=== PATIENT | male | born 1940 | race Caucasian/White ===

== ENCOUNTER → 2018-06-28 | Day surgery (SDC) | payer MEDICARE ==
[2018-06-27 18:24] LABS: BASOPHILS # (AUTO) 0.1 (0.0-0.1); BASOPHILS % 0.8 % (0.0-1.0); EOSINOPHILS # (AUTO) 0.3 (0.0-0.4); EOSINOPHILS % 4.4 % (0.0-6.0); HEMATOCRIT 49.5 % (38.2-49.6); HEMOGLOBIN 17.2 g/dL (14.0-18.0); LYMPHOCYTES # (AUTO) 0.9 (1.0-3.2); LYMPHOCYTES % 15.4 % (18.0-39.1); MEAN CORPUSCULAR HEMOGLOBIN 34.4 pg (28-32); MEAN CORPUSCULAR HGB CONC 34.7 g/dL (31-35); MONOCYTES # (AUTO) 0.5 (0.2-0.8); MONOCYTES % 8.2 % (4.4-11.3); NEUTROPHILS # (AUTO) 4.3 (2.1-6.9); NEUTROPHILS % 70.7 % (38.7-80.0); PLATELET COUNT 184 x10e3/uL (140-360); RED CELL DISTRIBUTION WIDTH 12.8 % (11.7-14.4)
[2018-06-27 18:43] LABS: ANION GAP 17.9 mmol/L (8-16); BLOOD UREA NITROGEN 12 mg/dL (7-26); BUN/CREATININE RATIO 12 (6-25); CALCIUM 9.6 mg/dL (8.4-10.2); CARBON DIOXIDE 22 mmol/L (22-29); CHLORIDE 106 mmol/L (98-107); EST GLOMERULAR FILTRATION RATE > 60 ML/MIN (60-); GLUCOSE 96 mg/dL (74-118); POTASSIUM 3.9 mmol/L (3.5-5.1); SODIUM 142 mmol/L (136-145)
--- NOTE | 2018-06-27 19:01 | Diagnostic Imaging Report ---
EXAMINATION: CHEST 2 VIEWS INDICATION: \S\PRE OP \S\[id number] \S\1740 \S\ANESTH PROT COMPARISON: None FINDINGS: PA and lateral views TUBES and LINES: Left chest wall pacer with lead tips overlying the right atrium and right ventricle. LUNGS: Lungs are well inflated. Lungs are clear. There is no evidence of pneumonia or pulmonary edema. PLEURA: No pleural effusion or pneumothorax. HEART AND MEDIASTINUM: The cardiomediastinal silhouette is unremarkable. BONES AND SOFT TISSUES: No acute osseous lesion. Soft tissues are unremarkable. UPPER ABDOMEN: No free air under the diaphragm. IMPRESSION: No acute thoracic abnormality. Signed by: DR. Ken Norman MD on 06/27/2018 6:57 PM
[~2018-06-28] MED LIST: AMBIEN PO; ASPIR 8181 MG PO; BUPIVACAINE HCL 0.5% INJ 30 ML VIAL INJ ONE; CEFAZOLIN SOD 1 GM VIAL ONE; CO Q-10 PO; DEXAMETHASONE SOD PHOS INJ 4 MG/ML VIAL ONE; FENTANYL CITRATE/PF 100MCG/2 ML INJ ONE; LABETALOL HCL 20 ML ONE; LIDOCAINE HCL 2% LOCAL 20 ML VIAL ONE; LIDOCAINE HCL 2% LOCAL INJ 5 ML SDV VIAL INJ ONE; LOSARTAN; LOSARTAN-HCTZ PO; MIDAZOLAM HCL 2 MG/2 ML VIAL ONE; ONDANSETRON HCL INJ 2 MG/ML VIAL ONE; PLAVIX75 MG PO; PROPOFOL IV EMULSION 10 MG/ML 20 ML VIAL ONE; SEVOFLURANE INHAL SOLN 250 ML PEN BTL ONE; VITAMIN B-12 PO
[2018-06-28 09:30] VITALS: BP 161/92
--- NOTE | 2018-06-28 11:08 | Operative Report ---
DATE OF PROCEDURE: June 28, 2018 FITNESS TECHNICIAN: Osman Spivey PA-C The patient was brought to the operating room for induction of anesthesia. Throughout this case, my PA's assistance was necessary for retraction of soft tissue and positioning of the extremity. This allows for efficient and technically successful execution of the operation and is considered medically necessary. PREOPERATIVE DIAGNOSIS: Left 4th trigger finger. POSTOPERATIVE DIAGNOSIS: Left 4th trigger finger. PROCEDURE: Left 4th trigger finger release. INDICATIONS: The patient is a 77-year-old gentleman who has severe left trigger finger. He has had this in other digits and would like to proceed with surgical release. The risks and benefits have been explained. He states he understands and wishes to proceed. 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 He would like a corticosteroid injection while he is under anesthesia. DESCRIPTION OF PROCEDURE: The patient was brought to the operating room and placed under general anesthetic. His left upper extremity was prepped and draped in a sterile manner. A preoperative time out was performed. The extremity was exsanguinated, and a proximal tourniquet was inflated to 250 mmHg. A transverse incision in line with the distal palmar crease was made. The A1 david was exposed and released. Fluid within the tendon sheath was blood-tinged. The tendon was retracted from the wound. The PIP joint had full fluid flexion. The DIP had limited motion secondary to arthritis. The wound was irrigated and closed with interrupted nylon stitches. Two mL of 2% lidocaine without epinephrine were injected around the incision. This was then mixed with a vial of Solu-Medrol. The carpus was injected. A sterile bandage was applied. The patient was extubated and transported to the recovery room in stable condition. There was no blood loss, and all needle and sponge counts were correct. Job#: [id number]
--- OUTSIDE RECORDS SUMMARY | 2018-06-28 14:32 | XMS REPORT ---
[facility] Address Unknown Phone Unavailable Care Team Providers Care Digital Research Analyst Name Role Phone MAXIMO JUNE Unavailable Unavailable KRISTI GRANADO SAYED Unavailable Unavailable Problems This patient has no known problems. Allergies, Adverse Reactions, Alerts This patient has no known allergies or adverse reactions. Medications This patient has no known medications. Results Test Description Test Time Test Comments Text Results Atomic Results Result Comments CHEST 2 VIEWS 2018-06-27 18:44:00 [place] [address] Patient Name: ROHAN VO MR #: [id number] : 1940 Age/Sex: 77/M Req #: [id number] Adm Physician: Ordered by: MAXIMO JUNE MD Report #: [id number] Location: OR Room/Bed: Procedure: [id number] DX/CHEST 2 VIEWS Exam Date: 06/27/18 Exam Time: 1740 REPORT STATUS: Signed EXAMINATION: CHEST 2 VIEWS INDICATION: COMPARISON: None FINDINGS: PA and lateral views TUBES and LINES: Left chest wall pacer with lead tips overlying the right atrium and right ventricle. LUNGS: Lungs are well inflated. Lungs are clear. There is no evidence of pneumonia or pulmonary edema. PLEURA: No pleural effusion or pneumothorax. HEART AND MEDIASTINUM: The cardiomediastinal silhouette is unremarkable. BONES AND SOFT TISSUES: No acute osseous lesion. Soft tissues are unremarkable. UPPER ABDOMEN: No free air under the diaphragm. IMPRESSION: No acute thoracic abnormality. Signed by: DR. Ken Narayanan MD on 06/27/2018 6:57 PM Dictated By: KEN NARAYANAN MD 56 T ranscribed By: ASHWIN on 06/27/181856 COPY TO: MAXIMO JUNE MD POCT-CREATININE 2016-12-23 14:11:00 POC-CREATININE (DASHAWNAKER) (test yskk=0104) 0.9 mg/dL 0.6-1.[address] [facility] [address] [address] [address] POC-EGFR (BEAKER) (test qfod=6693) 82 mL/min/1.73M2
--- OUTSIDE RECORDS SUMMARY | 2018-06-28 14:32 | XMS REPORT | Clinical Summary ---
Author Author [facility] Address Unknown Phone Unavailable Care Team Providers Care Switchboard Clerk Name Role Phone PCP Unavailable Allergies No Known Allergies Current Medications Prescription Sig. Disp. Refills Start End Date Status Date clopidogrel (PLAVIX) 75 Take 75 mg by mouth Active mg tablet daily. zolpidem (AMBIEN CR) 6.25 Take 5 mg by mouth every Active MG CR tablet night as needed . RIVAROXABAN (XARELTO Take 20 mg by mouth daily Active ORAL) . 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 Social History Tobacco Use Types Packs/Day Years Used Date Never Smoker Alcohol Use Drinks/Week oz/Week Comments No Sex Assigned at Date Recorded Not on file Last Filed Vital Signs Not on file Plan of Treatment Not on file Implants Implanted Type Area Unit Assembler Device Expiration Model / Identifier Date Serial / Lot Device Clsr Angio-Seal Vip 6fr Cardiovasc Right: ST [employer] 03/12/2018 [id number] / [id number] joshua Abebe MED:CARDIAC / Implanted: Qty: 1 on 05/04/2017 by SURG [id number] Mindy Vitale MD [employer] [place] 08/01/2016 [id number] Implanted: Qty: 1 on 07/16/2015 [employer] 8250 / / [id number] [employer] [place] 08/02/2016 [id number] Implanted: Qty: 1 on 07/16/2015 [employer] 4270 / / [id number] [employer] [place] 05/16/2017 [id number] Implanted: Qty: 1 on 04/28/2016 [employer] 0250 / / [id number] Results Not on fileafter 06/27/2017
== END | disposition home or self-care (01) ==
LOC: OR 05:26
PROVIDERS: ATTEND Specialist
DX: M65.342 Trigger finger, left ring finger (principal); I25.10 Atherosclerotic heart disease of native coronary artery without angina pectoris; I10 Essential (primary) hypertension; K57.92 Diverticulitis of intestine, part unspecified, without perforation or abscess without bleeding; K21.9 Gastro-esophageal reflux disease without esophagitis; Z01.810 Encounter for preprocedural cardiovascular examination; Z01.812 Encounter for preprocedural laboratory examination; Z01.818 Encounter for other preprocedural examination; Z79.02 Long term (current) use of antithrombotics/antiplatelets; Z95.810 Presence of automatic (implantable) cardiac defibrillator
CPT/HCPCS: 26055; 36415; 71046; 80048; 85025; 93005; J0690; J1100; J2001 ×2; J2250; J2405